=== PATIENT | male | born 1975 | race African-American/Black ===

== ENCOUNTER 2019-06-04 20:22 | Emergency (ER) | payer OTHER ==
[~2019-06-04] VITALS: Wt 133.8 kg
[~2019-06-04 20:22] MED LIST: MEDROL DOSEPAK4 MG PO; PREDNISONE10 MG PO
== END 2019-06-04 20:42 | disposition home or self-care (01) ==
LOC: ED 20:22
DX: S61.214A Laceration without foreign body of right ring finger without damage to nail, initial encounter (principal); W20.8XXA Other cause of strike by thrown, projected or falling object, initial encounter; Y93.89 Activity, other specified; Y92.89 Other specified places as the place of occurrence of the external cause; Y99.8 Other external cause status

== ENCOUNTER → 2023-04-18 | Outpatient (CLI) | payer SELFPAY | END | disposition home or self-care (01) | LOC: RAD 13:10 | PROVIDERS: ATTEND Chiropractor | DX: M47.812 Spondylosis without myelopathy or radiculopathy, cervical region (principal); M47.817 Spondylosis without myelopathy or radiculopathy, lumbosacral region; M41.87 Other forms of scoliosis, lumbosacral region ==

== ENCOUNTER 2024-10-31 20:56 | Emergency (ER) | payer SELFPAY ==
[~2024-10-31] VITALS: Ht 193 cm; Wt 142.9 kg
[2024-10-31] MEDS ORDERED: PREDNISONE50 MG PO (21:18)
[2024-10-31] MEDS ORDERED: methylPREDNISolone sod succ 125 MG VIAL IM ONE (21:20)
== END 2024-10-31 21:27 | disposition home or self-care (01) ==
LOC: ED 20:56
DX: M10.9 Gout, unspecified (principal)